=== PATIENT | female | born 1965 | race Caucasian/White ===

== ENCOUNTER 2017-01-31 07:37 | Day surgery (SDC) | payer OTHER ==
[~2017-01-31] VITALS: Ht 162.6 cm; Wt 71.6 kg
[2017-01-31] VITALS (9 sets, daily range): BP systolic 116–144; BP diastolic 65–91; PULSE 61–80; RESP 16–26; O2SAT 95–100
[~2017-01-31 07:37] MED LIST: CHOL100045 PO; CeFAZolin Inj 2 GM in IV Premix 1 EACH IV ONE; Lactated Ringer's 1,000 ML IV ONE; OMEG-83 PO; VIT1TABL83 PO
[2017-01-31] MEDS ORDERED: fentaNYL-PF 50 mCg/mL 2 mL Inj ONE (07:38)
[2017-01-31] MEDS ORDERED: Dexamethasone 4 mg/mL Inj ONE (07:38)
[2017-01-31] MEDS ORDERED: Glycopyrrolate 0.2 MG/ML 1mL Inj ONE (07:38)
[2017-01-31] MEDS ORDERED: Ondansetron 2 mg/mL 2 mL Inj ONE (07:38)
[2017-01-31] MEDS ORDERED: Rocuronium 10 mg/mL 5 mL Inj ONE (07:38)
[2017-01-31] MEDS ORDERED: MetoCLOpramide 5 mg/mL 2 mL Inj ONE (07:38)
[2017-01-31] MEDS ORDERED: Phenylephrine/NS 100 mCg/mL 10 mL Syringe IVPUSH ONE (07:38)
[2017-01-31] MEDS ORDERED: EPHEDrine/NS 5 mg/mL 5 mL Syringe ONE (07:38)
[2017-01-31] MEDS ORDERED: Neostigmine 1 mg/mL 10 mL Inj ONE (07:38)
[2017-01-31] MEDS ORDERED: Propofol 10,000 mCg/mL 20 mL Inj ONE (07:38)
[2017-01-31] MEDS ORDERED: Lidocaine 1%-Epi 1:100,000 20 mL Inj INFILTRATE ONE ×2 (10:30→12:18)
[2017-01-31] MEDS ORDERED: Lactated Ringer's 500 ML IV PRN (10:33)
[2017-01-31] MEDS ORDERED: Lactated Ringer's 1,000 ML IV SCH (10:33)
[2017-01-31] MEDS ORDERED: Atropine 0.4 mg/mL Inj IVPUSH PRN (10:35)
[2017-01-31] MEDS ORDERED: HYDROmorphone 1 mg/mL Inj IVPUSH PRN (10:35)
[2017-01-31] MEDS ORDERED: EPHEDrine Sulfate 50 mg/mL Inj IVPUSH PRN (10:35)
[2017-01-31] MEDS ORDERED: MetoCLOpramide 5 mg/mL 2 mL Inj IVPUSH PRN (10:35)
[2017-01-31] MEDS ORDERED: fentaNYL-PF 50 mCg/mL 2 mL Inj IVPUSH PRN (10:35)
[2017-01-31] MEDS ORDERED: Phenylephrine 10,000 mCg/mL Inj IVPUSH PRN (10:35)
[2017-01-31] MEDS ORDERED: Labetalol 5 mg/mL 4 mL Inj IV PRN (10:35)
[2017-01-31] MEDS ORDERED: Ondansetron 2 mg/mL 2 mL Inj IVPUSH PRN (10:35)
--- NOTE | 2017-01-31 10:36 | PCM.HPANE ---
Patient Data Surgeon Admitting Provider: Attending Provider:Sen Torres DO Primary Care Physician:Les Garzon DO Other Provider:Tito Krishnamurthy Anesthesia Reason for Visit Right Shoulder Calcific Tendinitis Ht/WT & BMI Height (Feet): 5 Height (Inches): 4 Weight (Kilograms): 71.6 Body Mass Index 26.00 Allergies Coded Allergies: prednisone (Verified Adverse Reaction, Severe, delirium, 01/26/17) Past Anesthesia History Anesthesia History: Denies:: Abnormal Airway, Anesthesia Reactions, Difficult Intubation, Fam Anesthesia Reaction, Fam Malignant Hypertherm, Malignant Hyperthermia Diabetes History Hx Diabetes?: No MRSA MRSA: No Medications Home Meds Incl Beta [place]: No Reported Medications Cholecalciferol (Vitamin D3) (Vitamin D)1,000 Unit Capsule2,000 Unit PO DAILY # 1 BOTTLE Ref 0 01/26/17 Roggen-3/Dha/Epa/Fish Oil (Fish Oil 500 mg Softgel)1 Each Capsule1 Each PO DAILY 01/26/17 Vit B Comp/C/FA/Iron/Vit E (Vitamin B Complex Tablet)1 Each Tablet1 Each PO DAILY 01/26/17 History History of ENT Problems?: Yes HEENT History: Positive for:: Sinus Problem (ALLERGIC COUGH-SEASONAL) Denies:: Abnormal Airway Cataracts Difficult Intubation Dysphagia Glaucoma Hearing Problem TMJ Denture Type: None Teeth Condition: Within Normal Limits Other HEENT Pertinent History: S/P TONSILLECTOMY Hx of Heart Problems?: Yes Cardiovascular History: Positive for:: Valvular Heart Disease (MILD TR) Denies:: AICD Abdominal Aortic Aneurism Atrial Fibrillation Cardiac Surgery Chest Pain Congestive Heart Failure (+FAM HX) Coronary Artery Disease Edema Heart Murmur (ECHO 11/2011 EF 60-65%) Hypertension Irregular Heartbeat Pacemaker Peripheral Vascular Rheumatic Fever Thrombophlebitis Hx of Respiratory Problem?: Yes Respiratory History: Positive for:: Cough (ALLERGIC/SEASONAL) Denies:: Asthma COPD Chest Surgery Dyspnea Emphysema Hemoptysis Oxygen Administration Pneumonia Pulmonary Embolism Tuberculosis Use of C-PAP Machine Use of Inhalers / NEBS Hx Neurologic Problems?: No Neurological History: Denies:: Alzheimer's Disease CVA Dementia Dizziness Headaches Multiple Sclerosis Parkinson's Disease Peripheral Neuropathy Seizures TIA Hx of GI Problems?: No Gastrointestinal History: Denies:: Cirrhosis Diverticulitis Gall Bladder Disease Gastroesphageal Reflux Gastrointestinal Bleeding Heartburn Hepatitis Hiatal Hernia Liver Disease Rectal Bleeding Hx of Problems?: No Genitourinary History: Denies:: HX of Hemodialysis Kidney Stones Urinary Tract Infection HX of Peritoneal Dialysis: No Female Hx: Denies:: Currently (S/P C/S, BTL) Endometriosis Pelvic Inflammatory Problems with Breasts? Skin History: Positive for:: History Skin Disorders? (S/P EXC BENIGN SKIN LESIONS) Denies:: Pressure Ulcers Hx Musculoskeletal Problems?: Yes Musculoskeletal History: Positive for:: Musculoskeletal Trauma (INTERNAL DERANGEMENT RT SHOULDER=CURRENT PROBLEM) Denies:: Back Injury Degenerative Joint Fibromyalgia Joint Replacement Myasthenia Gravis Osteoarthritis Rheumatoid Arthritis Systemic Lupus Hx of Psycho/Social Problems?: No Psycho Social History: Denies:: Anxiety Bipolar Disorder Hx Depression Suicide Attempt Hx Surgeries?: Yes (EXC SKIN LKESION,C/S,BTL,TONSILLECTOMY) Hx Any Other Health Problems?: Yes Other History: Denies:: Cancer Endocrine Disease Hospitalization Thyroid Disease History Blood Transfusions: Positive for:: Accept Blood Products? Denies:: Blood Transfuse Reaction Blood Transfusions Hx Diabetes: No Have You Smoked inLast 12 mo: No Stop/Bang S-Snoring: Do You Snore Loudly: No T-Tired: feel tired, fatigued: No O-Obsered: Observed not breath: No P-Blood Pressure: treated: No B- Body Mass Index > 35 kg/m2: No A- Age over 50: No N- Neck Large Circumference: No G- Gender Male: No HARRY Total Score: 0 Risk Assessment Category Category 1A: Patient has history of documented sleep apnea, and HAS NOT received any narcotic, sedative or anesthesia administration during this stay. Category 1B: Patient has history of documented sleep apnea, and HAS received any narcotic , sedative or anesthesia administration during this stay Category 2: Patient has SUSPECTED Obstructive Sleep Apnea, and HAS received any narcotic , sedative or anesthesia administration during this stay. Category 3: Patient has SUSPECTED Obstructive Sleep Apnea and HAS NOT received narcotic, sedative or anesthesia administration during this stay. Category 4: Outpatient in Procedural Areas with known sleep apnea or who screen positive for High Risk via the STOP/BANG questionnaire. Exam Exam Vital Signs Vital Signs Date Time Temp Pulse Resp B/P Pulse Ox O2 Delivery O2 Flow Rate FiO2 01/31/17 07:56 36.4 61 16 116/69 98 Room Air General Appearance: Alert, Oriented X3, Cooperative, No Acute Distress HEENT/AIRWAY: MP 2, Neck Movement (FROM), Mouth Opening (3 FBMO) Lungs: Clear to Auscultation, Normal Air Movement Heart: Exam Unremarkable, Regular Rate/Rhythm, No Murmurs/Rubs/Gallops Meds/Labs/Diagnostics Admission Meds Current Medications Lactated Ringer's (Lr) 1,000 ml @ 120 mls/hr [id number] ONCE IV Last administered on 01/31/17t 07:56; Start 01/31/17 at 05:00; Stop 01/31/17 at 13:19 Plan Impression Patient chart reviewed, patient interviewed and anesthestic plan with risks, benefits, and alternatives discussed, and informed consent obtained. NPO per Anesth. Guidelines: Yes ASA Physical Status: ASA2 Mod Systemic Disease Anesthetic Plan: GA, Regional Block (Right interscalene block for postoperative pain control. Risks discussed. AQA) Bene/Risks/Altern/Consents: Yes HP Complete Prior to Induction: Yes Sen Hernandes MD January 31, 2017 08:47
[2017-01-31] MEDS ORDERED: Acetaminophen IV 1,000 MG in IV Premix 1 EACH IV ONE (12:25)
[2017-01-31] MEDS ORDERED: HYDROcodone-APAP 7.5-325 mg Tablet PO PRN (12:25)
--- NOTE | 2017-01-31 13:58 | OP ---
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 POSTOPERATIVE DIAGNOSIS(ES): Right shoulder calcific tendinitis, acromioclavicular joint arthritis, biceps tendinitis and partial tear and subacromial impingement. PROCEDURE: Right shoulder video arthroscopy with subacromial decompression, arthroscopic excision of calcific tendonitis and subsequent rotator cuff repair, arthroscopic distal clavicle excision, and mini open biceps tenodesis. SURGEON: Sen Torres DO. HIGH SCHOOL PHYSICAL EDUCATION TEACHER: Angelique Bagley PA-C. INDICATIONS: The patient is a 51-year-old female who has been having longstanding trouble with the right shoulder. Failed conservative measures and wished to proceed with a right shoulder video arthroscopy. We discussed the risks, benefits, and possible complications of surgery, including but not limited to injury to nerves and vessels, infection, bleeding, incomplete relief of symptoms, stiffness, need for additional procedures. The patient had good understanding. All questions were answered and she wished to proceed. A surgical appliances salesperson was required for the successful completion of this procedure. PROCEDURE IN DETAIL: The patient was brought to the operating room. She was given a preoperative antibiotic and interscalene block, placed comfortably into the beach chair position. The right shoulder was sterilely prepped and draped. An incision was made over the posterolateral shoulder for a posterolateral portal. Inspection was undertaken of the shoulder. Her humeral head was found to be in excellent condition as was the glenoid. An anterior portal was established under needle localization. She was found to have a partial tear and significant inflammation within the long head biceps which was released off of the superior labrum. She had Javier variant of the labrum but did not show any redness in the superior labrum. Her subscapularis was intact. Her rotator cuff appeared intact from the articular side. The scope was then removed and replaced into the subacromial space, and she was noted to have a significant amount of bursitis and a large subacromial spur. A lateral portal was established and the bursa was resected. The large subacromial spur was also resected with a bur, removing about 5-6 mm of bone. Next, the rotator cuff was probed with a spinal needle, and the calcific tendinitis area was found more anteriorly. A small incision was made in the rotator cuff in order to facilitate debridement of the calcific tendonitis and then the shaver was used to debride out the calcific tendinitis within the rotator cuff. Once this had been accomplished, there was defect in the rotator cuff which was fairly small and this was repaired with simple [id number] suture with FiberWire. Next, the distal clavicle was addressed and the distal clavicle was co-planed initially and then we removed about 8 mm of bone from the distal clavicle, taking care to ensure that the bone was removed in its entirety anterior to posterior, superficial to deep, and that the superior capsule was left intact. The shaver was removed and the mini open biceps was undertaken. An incision was made over the anterior arm. Dissection was carefully carried through subcutaneous tissue. The fascia was incised in line with the skin incision and the biceps tendon was then herniated out through the wound. Retractor was placed along the humerus and the bicipital groove was cleared of soft tissue at the distal aspect. A 4.5 drill hole was made proximally and two 2.0 drill holes were made distally. The tendon was then cut to appropriate length at the musculotendinous junction and whipstitched with FiberWire. Then using an ideal suture shuttle the biceps was shuttled so that it entered in through the 4.5 hole and the sutures exited through the 2.0 drill holes respectively. This was then passed back through itself with a free needle and tied on top of itself yielding excellent fixation. The wound was then irrigated and closed with 2-0 to close the fascia. The subcu was closed with 4-0 Vicryl and Monocryl. The scope portals were closed with interrupted nylon suture. Naropin was added as an adjunct local anesthetic. Sterile dressings were applied. Patient tolerated the procedure well. BLOOD LOSS: 25 cc POSTOPERATIVE PROTOCOL: Will have the patient maintain her arm sling for three weeks with no lifting of more than 1 pound for six weeks. She was given a prescription for [place] 7.5/325 for pain.
--- NOTE | 2017-01-31 18:55 | PCM.ANEP1 ---
Post Anesthesia PACU Phase 1 Assessment Vital Signs Vital Signs Date Time Temp Pulse Resp B/P Pulse Ox O2 Delivery O2 Flow Rate FiO2 01/31/17 14:12 63 18 121/66 99 Room Air 01/31/17 13:04 69 20 135/70 97 Room Air 01/31/17 12:55 36.1 68 26 129/68 95 Room Air 01/31/17 12:50 80 23 125/65 96 Room Air 01/31/17 12:45 79 26 136/71 96 Room Air 01/31/17 12:40 70 22 143/76 96 Room Air 01/31/17 12:35 80 20 135/77 96 Room Air 01/31/17 12:31 35.9 77 22 144/91 100 Simple Mask 8 Anesthetic Administered: GA Level of Alertness: Awake, talking KARIMI's with Equal Strength: Yes Pain: No Nausea or Vomiting: No CV Function & Hydration Stable: No Airway Device: Oxygen Delivery: Room Air Lungs: Clear to Auscultation, Normal Air Movement Dermatome Level: Full Sensation PACU Phase 2 Assessment Complications: No Follow up Care: N/A Patient Instructions Provided: N/A Sen Hernandes MD January 31, 2017 18:55
== END 2017-01-31 23:59 | disposition home or self-care (01) ==
LOC: SAS 07:37
PROVIDERS: ATTEND Orthopaedic Surgery
DX: M75.111 Incomplete rotator cuff tear or rupture of right shoulder, not specified as traumatic (principal); M75.41 Impingement syndrome of right shoulder; M75.31 Calcific tendinitis of right shoulder; M13.811 Other specified arthritis, right shoulder; M75.21 Bicipital tendinitis, right shoulder; M25.511 Pain in right shoulder; J30.2 Other seasonal allergic rhinitis
CPT/HCPCS: 23430; 29824; 29826; 29827; J0690; J1100; J1885; J2250; J2370; J2405; J2710; J2765; J3010; J7120